=== PATIENT | female | born 1990 | race Caucasian/White ===

== ENCOUNTER 2019-11-30 16:21 | Emergency (ER) | payer BC, OTHER ==
--- NOTE | 2019-11-30 16:47 | EDM.PDOC ---
ED HPI GENERAL MEDICAL PROBLEM - General Chief Complaint: Respiratory Problem Stated Complaint: COVID Time Seen by Provider: 11/30/19 16:43 Source of Information: Reports: Patient History Limitations: Reports: No Limitations - History of Present Illness INITIAL COMMENTS - FREE TEXT/NARRATIVE: Presents with productive cough, night sweats, mild SOB with exertion, and loss of smell and taste x 2 days. Patient's roommate was diagnosed with COVID-19. Denies chest pain. No prior h/o chronic lung disease and she is a non-smoker. Duration: Day(s): (2) Severity: Mild - Related Data Allergies Allergy/AdvReac Type Severity Reaction Status Date / Time amoxicillin Allergy Rash Verified 11/30/19 16:37 Penicillins Allergy Rash Verified 11/30/19 16:37 Home Meds: Home Meds Cetirizine HCl [Zyrtec] 10 mg PO DAILY PRN 11/30/19 [History] Citalopram [Citalopram HBr] 20 mg PO DAILY 11/30/19 [History] Past Medical History Psychiatric History: Reports: Depression Social & Family History - Tobacco Use Smoking Status *Q: Never Smoker ED ROS GENERAL - Review of Systems Review Of Systems: Comprehensive ROS is negative, except as noted in HPI. ED EXAM, GENERAL - Physical Exam Exam: See Below Exam Limited By: No Limitations General Appearance: Alert, WD/WN, No Apparent Distress Ears: Normal External Exam Nose: Normal Inspection Throat/Mouth: No Airway Compromise Head: Atraumatic, Normocephalic Neck: Full Range of Motion Respiratory/Chest: No Respiratory Distress, Lungs Clear, Normal Breath Sounds Cardiovascular: Regular Rate, Rhythm, No Murmur Extremities: Normal Range of Motion Neurological: Alert, Normal Cognition Psychiatric: Normal Affect, Normal Mood Skin Exam: Warm, Dry, Intact Course - Vital Signs Last Recorded V/S: Last Vital Signs Temp 36.6 C 11/30/19 16:47 Pulse 108 H 11/30/19 16:47 Resp 18 11/30/19 16:47 BP 123/89 11/30/19 16:47 Pulse Ox 99 11/30/19 16:47 - Orders/Labs/Meds Orders: Active Orders 24 hr Category Date Time Status CORONAVIRUS COVID-19, JOSTIN Stat Lab 11/30/19 16:42 Ordered Departure - Departure Time of Disposition: 16:49 Disposition: Home, Self-Care 01 Condition: Good Clinical Impression: Suspected COVID-19 virus infection - Discharge Information *PRESCRIPTION DRUG MONITORING PROGRAM REVIEWED*: No *COPY OF PRESCRIPTION DRUG MONITORING REPORT IN PATIENT DEANDRA: Not Applicable Instructions: Coronavirus Information 10/27/19 Forms: ED Department Discharge Additional Instructions: Self isolate at home until the COVID-19 test result comes back. If positive, call the [place] [facility] for further instructions. You may take Tylenol and OTC Mucinex for symptom control. Return to the ER if symptoms worsen, especially shortness of breath. Sepsis Event Note - Focused Exam Vital Signs: Vital Signs Temp Pulse Resp BP Pulse Ox 11/30/19 16:47 36.6 C 108 H 18 123/89 99 Date Exam was Performed: 11/30/19 Time Exam was Performed: 16:48 - My Orders Last 24 Hours: My Active Orders 11/30/19 16:42 CORONAVIRUS COVID-19, JOSTIN Stat - Assessment/Plan Last 24 Hours: My Active Orders 11/30/19 16:42 CORONAVIRUS COVID-19, JOSTIN Stat
== END 2019-11-30 17:00 | disposition home or self-care (01) ==
LOC: FB.ED 16:21
DX: U07.1 COVID-19 (principal); F32.9 Major depressive disorder, single episode, unspecified; Z88.1 Allergy status to other antibiotic agents; Z88.0 Allergy status to penicillin; Z79.899 Other long term (current) drug therapy
CPT/HCPCS: 99284; U0002